=== PATIENT | female | born 1955 | race Caucasian/White ===

== ENCOUNTER 2017-04-17 22:00 | Inpatient (IN) | payer MEDICARE ==
[~2017-04-17] VITALS: Ht 170.2 cm; Wt 97.5 kg
--- NOTE | ~2017-04-17 | HP ---
Unit #: [id number] #: [id number] Patient: JASON LOVELL [id number] [place] [address] [id number] I MR#: [id number] NAME: JASON LOVELL ROOM: P181 Age: 61 Sex: F Admission Date: 04/18/2017 : 1955 Attending Physician: Carol Ann Pulido M.D. Admitting Physician: Carol Ann Pulido M.D. Primary Care Physician: Primary Care Physician No HISTORY AND PHYSICAL HISTORY OF PRESENT ILLNESS Jason is a 61-year-old female admitted on 04/18/2017 to [facility] for alcohol withdrawal. She reports binge alcohol use. PAST MEDICAL HISTORY None. PAST SURGICAL HISTORY 1. Tonsillectomy. 2. Appendectomy. 3. C5 diskectomy with titanium disc placement. ALLERGIES No known drug allergies. SOCIAL HISTORY She smokes 1-1/2 packs of cigarettes daily. Binge alcohol use. Denies any illegal drug use. She is currently a and living alone. FAMILY HISTORY Noncontributory. REVIEW OF SYSTEMS CONSTITUTIONAL: No fever or chills. HEENT: Denies any sore throat, ear pain or runny nose. CARDIOVASCULAR: Denies chest pain, irregular heart rhythm or palpitations. CHEST: Denies shortness of breath or cough. No hemoptysis. GASTROINTESTINAL: Denies nausea, vomiting, diarrhea or chronic constipation. ENDOCRINE: Denies history of increased thirst or urination. No recent significant weight loss or gain. GENITOURINARY: Denies dysuria, frequency, or hematuria. SKIN: Denies any rashes. HEMATOLOGIC: Denies history of increased bleeding or bruising. MUSCULOSKELETAL: Denies any hot, swollen joints. No generalized muscle pain. NEUROLOGIC: Denies problems with vision or speech. No frequent, severe headaches. No numbness, tingling or weakness in any extremities. Denies loss of bladder or bowel control. CURRENT MEDICATIONS 1. Trileptal. 2. Topiramate. Unit #: [id number] #: [id number] Patient: JASON LOVELL 3. Olanzapine. 4. Trazodone. PHYSICAL EXAMINATION GENERAL: Alert, oriented, in no acute distress. VITAL SIGNS: Blood pressure 118/80, heart rate 97, respirations 16, temperature 97.7. HEIGHT: 5 feet 7. WEIGHT: 215 pounds. SKIN: Warm and dry without rash or lesion. HEENT: Normocephalic. TMs not viewed. Oral and nasal passages clear. Conjunctivae clear. PERRLA. EOMs intact. NECK: Supple without lymphadenopathy or thyromegaly. HEART: Regular rate and rhythm without murmur. LUNGS: Clear. ABDOMEN: Soft, nontender, without masses or hepatosplenomegaly. : Not done. EXTREMITIES: No evidence of cyanosis, clubbing or edema. Moves all without focal deficit. NEUROLOGICAL: Grossly within normal limits. Cranial Nerves: II: Visual garcia are intact. III, IV AND : Extraocular movements are intact. Pupils are equal, round and reactive to light. V: Facial sensation is grossly normal. VII: Facial movements and expression are normal. VIII: Auditory acuity grossly intact. IX, X: Uvula is midline. Phonation is normal. XI: Patient shrugs shoulders and turns head normally. XII: Tongue protrudes in the midline. Sensory and Motor Function: Sensory and motor sensation is grossly normal. Motor: moves all extremities well. Coordination: Gait is normal. Deep Tendon Reflexes: Intact. IMPRESSION 1. Psychiatric admission. 2. Obesity. RECOMMENDATIONS PSYCHIATRIC: Per psychiatrist. MEDICAL: No contraindication to participate in facility's activities. MEDICAL PROGNOSIS Good. MEDICAL CONDITION Stable. Dictated by... Bassem Cervantes/lei TD: 04/18/2017 15:47 JOB #: [id number] Unit #: [id number] #: [id number] Patient: JASON LOVELL HISTORY AND PHYSICAL Page 1 of 1 X JAMES ISLAS APRN HISTORY AND PHYSICAL
--- NOTE | ~2017-04-17 | PN ---
Unit #: [id number] #: [id number] Patient: JASON LOVELL [id number] [facility] [address] [place] [address] [id number] I MR#: [id number] NAME: JASON LOVELL. ROOM: P180 Age: 61 Sex: F Admission Date: 04/18/2017 : 1955 Attending Physician: Carol Ann Pulido M.D. Admitting Physician: Carol Ann Pulido M.D. Primary Care Physician: Primary Care Physician Fartun MCLAUGHLIN PROGRESS NOTES DATE 04/22/2017 DISCUSSION Ms. Villalobos is a 17-year-old white female who was seen today and chart was reviewed and case was discussed with the staff. She appears to be doing much better and has been calmer and cooperative with treatment recommendations as she has been taking the medications and tolerating them fairly well with no reported side effects. MENTAL STATUS EXAMINATION Middle-aged white female who was casually dressed with fair personal hygiene, appears to be in no acute distress or discomfort. She was awake and alert on interaction with intact orientation. Her mood was anxious with congruent affect. Her speech was slow and goal-directed. She denies any suicidal or homicidal ideations. Her insight and judgement remains slightly impaired. TREATMENT PLAN 1. We will continue her on her current medications and treatment protocol. We will monitor her response to the medication and make further adjustments as needed. 2. We will continue to follow up. Dictated by... Ramon Kyle/rishi TD: 04/22/2017 23:57 JOB #: [id number] Unit #: [id number] #: [id number] Patient: JASON LOVELL PROGRESS NOTES Page 1 of 1 X Carol Ann Pulido MD PROGRESS NOTE
--- NOTE | ~2017-04-17 | PN ---
Unit #: [id number] #: [id number] Patient: JASON LOVELL [id number] [facility] [address] [place] [address] [id number] I MR#: [id number] NAME: JASON LOVELL. ROOM: P182 Age: 61 Sex: F Admission Date: 04/18/2017 : 1955 Attending Physician: Carol Ann Pulido M.D. Admitting Physician: Carol Ann Pulido M.D. Primary Care Physician: Primary Care Physician Fartun MCLAUGHLIN PROGRESS NOTES DATE OF SERVICE 04/20/2017 DISCUSSION Ms. Lovell is a 61-year-old white female who was seen today. Chart was reviewed and case was discussed with the staff. She has been anxious, withdrawn, and rather seclusive to herself. Meanwhile, she has been cooperative with treatment recommendations and has been taking the medications and tolerating them fairly well and appears to be coming out of the detox without any complications. MENTAL STATUS EXAMINATION Middle-aged white female who is casually dressed with fair personal hygiene, appears to be in no acute distress or discomfort. She was awake and alert on interaction with intact orientation. Her mood is anxious and depressed with congruent affect. Her speech is slow and goal-directed. She denies any suicidal or homicidal ideations. Her insight and judgment remain slightly impaired. TREATMENT PLAN 1. We will continue her on her current medications and treatment protocol. We will monitor her response to the medications and make further adjustments as needed. 2. We will continue to follow up. Dictated by... Ramon Kyle/dannie TD: 04/21/2017 12:27 JOB #: [id number] Unit #: [id number] #: [id number] Patient: JASON LOVELL LISSETTE PROGRESS NOTES Page 1 of 1 X Carol Ann Pulido MD PROGRESS NOTE
--- NOTE | ~2017-04-17 | CO ---
Unit #: [id number] #: [id number] Patient: JASON LOVELL [id number] [place] [address] [id number] I MR#: [id number] NAME: JASON LOVELL ROOM: P181 Age: 61 Sex: F Admission Date: 04/18/2017 : 1955 Attending Physician: Carol Ann Pulido M.D. Primary Care Physician: Primary Care Physician No Consultation Date: 04/18/2017 CONSULTATION REPORT HISTORY OF PRESENT ILLNESS Jason had an abnormal UA that showed 3+ bacteria and 1+ blood. She also had negative nitrites. She reports that she might have a small amount of burning when she pees, but she is not sure how long that has been going on. She has not noticed any blood. She has been waking up twice at night to urinate, which is not common for her. She is also urinating a few times a day, not frequently throughout the day. No back pain. No abdominal pain. No other complaints. PHYSICAL EXAMINATION CARDIAC: Regular rate and rhythm. No murmurs, gallops, or rubs. RESPIRATORY: Clear to auscultation bilaterally. ABDOMEN: Bowel sounds positive in all quadrants. No abdominal tenderness to palpation. No CVA tenderness or flank pain. ASSESSMENT AND PLAN Abnormal urinalysis. We will obtain urine with culture and sensitivity. Once results are available, we will consider antibiotic treatment if needed. Dictated by... Bassem Cervantes/belkis TD: 04/18/2017 23:19 JOB #: [id number] CONSULTATION REPORT Page 1 of 1 X JAMES ISLAS APRN X CONSULTATION REPORT
--- NOTE | ~2017-04-17 | PN ---
Unit #: [id number] #: [id number] Patient: JASON LOVELL [id number] [facility] [address] [place] [address] [id number] I MR#: [id number] NAME: JASON LOVELL. ROOM: P182 Age: 61 Sex: F Admission Date: 04/18/2017 : 1955 Attending Physician: Carol Ann Pulido M.D. Admitting Physician: Carol Ann Pulido M.D. Primary Care Physician: Primary Care Physician Fartun MCLAUGHLIN PROGRESS NOTES DATE April 21, 2017 DISCUSSION Ms. Lovell is a 61-year-old white female, who was seen today and chart was reviewed and the case was discussed with the staff. She has been doing fairly well and appears to be coming out of the detox without any complications, and she has been cooperative with the treatment recommendations and has been taking the medications and tolerating them fairly well with no reported side effects. MENTAL STATUS EXAMINATION Middle-aged white female, who was casually dressed with fair personal hygiene and appears to be in no acute distress or discomfort. She was awake and alert on interaction with intact orientation. Her mood was anxious with a congruent affect. Her speech is slow and goal-directed. She denies any suicidal or homicidal ideations. Her insight and judgment remain slightly impaired. TREATMENT PLAN 1. We will continue her on her current medications and treatment protocol, and will monitor her response to the medications, and make further adjustments as needed. 2. We will continue to followup. Dictated by... Ramon Kyle/jose TD: 04/22/2017 07:25 JOB #: [id number] Unit #: [id number] #: [id number] Patient: JASON LOVELL PROGRESS NOTES Page 1 of 1 X Carol Ann Pulido MD PROGRESS NOTE
--- NOTE | ~2017-04-17 | PN ---
Unit #: [id number] #: [id number] Patient: JASON LOVELL [id number] [facility] [address] [place] [address] [id number] I MR#: [id number] NAME: JASON LOVELL. ROOM: P181 Age: 61 Sex: F Admission Date: 04/18/2017 : 1955 Attending Physician: Carol Ann Pulido M.D. Admitting Physician: Carol Ann Pulido M.D. Primary Care Physician: Primary Care Physician Fartun MCLAUGHLIN PROGRESS NOTES DATE April 19, 2017 DISCUSSION Ms. Lovell is a 61-year-old white female, who was seen today and chart was reviewed and the case was discussed with the staff. The patient has been anxious, withdrawn, and rather seclusive to herself. Meanwhile, she has been cooperative with the treatment recommendations and she has been taking the medications and tolerating them fairly well with no reported side effects. MENTAL STATUS EXAMINATION Middle-aged white female, who was casually dressed with fair personal hygiene and appears to be in no acute distress or discomfort. She was awake and alert with impaired attention and concentration. Her mood was anxious with a congruent affect. The patient denies any suicidal or homicidal ideations. Her insight and judgment remain slightly impaired. TREATMENT PLAN 1. We will continue her on her current medications and treatment protocol, and will monitor her response to the medications, and make further adjustments as needed. 2. We will continue to followup. Dictated by... Ramon Kyle/jose TD: 04/20/2017 11:29 JOB #: [id number] Unit #: [id number] #: [id number] Patient: JASON LOVELL PEAMANNY PROGRESS NOTES Page 1 of 1 X Carol Ann Pulido MD PROGRESS NOTE
--- NOTE | ~2017-04-17 | DS ---
Unit #: [id number] #: [id number] Patient: JASON LOVELL [id number] [facility] [address] [place] [address] [id number] I MR#: [id number] NAME: JASON LOVELL ROOM: P180 Age: 61 Sex: F Admission Date: 04/18/2017 : 1955 Discharge Date: 04/23/2017 Attending Physician: Carol Ann Pulido M.D. Primary Care Physician: Primary Care Physician No DISCHARGE SUMMARY IDENTIFYING DATA Ms. Lovell is a 61-year-old single white female, who is a resident of [place], [place], and was self-referred to the hospital on voluntary basis with a blood alcohol level of 0.110. DISCHARGE DIAGNOSES Psychiatric: Alcohol dependence, moderate and acute withdrawals; alcohol-induced mood disorder. Medical: Hypertension and dyslipidemia. Stressors: Mild psychosocial stressors. HISTORY OF PRESENT ILLNESS Please see initial psychiatric evaluation for details. PAST PSYCHIATRIC HISTORY Please see initial psychiatric evaluation for details. PAST MEDICAL HISTORY Please see initial psychiatric evaluation for details. HOSPITAL COURSE The patient [facility] and was oriented to the hospital environment. Routine p.r.n. medications were initiated, and she was started back on her home medications and was closely monitored. She was taking medications regularly and was tolerating them fairly well and was able to come out of the detox without any complications and was willing to continue treatment on an outpatient basis and as such, it was decided that she will be discharged home and will continue treatment on an outpatient basis. DISCHARGE MEDICATIONS Trileptal 600 mg at bedtime for bipolar, Topamax 50 mg b.i.d. for mood disorder, Zyprexa 10 mg at bedtime for mood disorder, trazodone 150 mg at bedtime for sleep. DISCHARGE CONDITION Stable. PROGNOSIS Fair. Dictated by... Carol Ann Pulido M.D. Unit #: [id number] #: [id number] Patient: JASON LOVELL IAA/modl TD: 04/23/2017 06:44 JOB #: [id number] DISCHARGE SUMMARY Page 1 of 1 X Carol Ann Pulido MD DISCHARGE SUMMARY
--- NOTE | ~2017-04-17 | PA ---
Unit #: [id number] #: [id number] Patient: JASON LOVELL [id number] [facility] [address] [place] [address] [id number] MR#: [id number] NAME: JASON LOVELL. ROOM: P181 Age: 61 Sex: F Admission Date: 04/18/2017 : 1955 Date of Assessment: Attending Physician: Carol Ann Pulido M.D. Admitting Physician: Carol Ann Pulido M.D. PSYCHIATRIC ASSESSMENT DATE OF SERVICE 04/18/2017. IDENTIFYING DATA Ms. Lovell is a 61-year-old single white female, who is a resident of [place], [place], and was self-referred to the hospital on a voluntary basis with blood alcohol level of 0.110. CHIEF COMPLAINT "Alcohol and I need to detox off alcohol." HISTORY OF PRESENT ILLNESS Ms. Lovell is a 61-year-old white female with history of alcohol dependence, who came to the hospital intoxicated and stated that she has been drinking heavily for the last 7 months and she has been drinking half a pint of vodka and 2 glasses of wine and 2 shots of whiskey and does report increasing depression, anxiety, irritability, restlessness, feelings of hopelessness and helplessness, but denies any suicidal ideations, intent, or plan. SUBSTANCE ABUSE HISTORY The patient reports history of experimentation with cannabis and cocaine in the past, but currently alcohol has been her drug of choice as she reports that she has been drinking regularly and heavily on daily basis. PAST PSYCHIATRIC HISTORY The patient has had history of chemical dependency treatment in [place], and reports that she drove here from [place] to get into the treatment program here. PAST MEDICAL HISTORY The patient's medical history is significant for hypertension and dyslipidemia. ALLERGIES No known medication allergies. PERSONAL AND SOCIAL HISTORY A 61-year-old white female, who reports that she is unemployed and essentially homeless and has poor social support system. MENTAL STATUS EXAMINATION Middle-aged white female who was casually dressed with fair personal Unit #: [id number] #: [id number] Patient: JASON LOVELL hygiene, appears to be in no acute distress or discomfort. She was awake and alert on interaction with intact orientation to time, place, and person. Her mood was anxious and depressed with a congruent affect. Her speech was slow and restricted in content. Her thought processes were disorganized with some looseness of associations and flight of ideas. She denies any suicidal or homicidal ideations and also denies any auditory or visual hallucinations. Her insight and judgment remain significantly impaired. DIAGNOSTIC IMPRESSION Psychiatric: Alcohol dependence, moderate and acute withdrawals; alcohol-induced mood disorder. Medical: Hypertension and dyslipidemia. Stressors: Moderate psychosocial stressors. TREATMENT PLAN 1. The patient has presented with history of substance abuse and mood disorder, and has been decompensating and will need inpatient hospitalization for safety and stabilization. We will start her on detox protocol. We will closely monitor for any worsening withdrawal symptoms. 2. Supportive therapy was provided to the patient. 3. Safe, structured, and nourishing environment will be provided. ESTIMATED LENGTH OF STAY 5 to 7 days. ABILITY TO HELP SELF Limited. WILLINGNESS TO HELP SELF The patient appears to be willing to help self. STRENGTHS 1. Communicative. 2. Cooperative. PROBLEMS 1. Chronic dysphoric symptoms. 2. Chronic chemical dependency. 3. Poor social support system. DISCHARGE CRITERIA This will be contingent upon the patient's ability to go through detox without having any significant withdrawal symptoms as well as her ability to stay safe to herself, particularly after discharge from the hospital. Dictated by... Ramon Kyle/belkis TD: 04/18/2017 22:59 JOB #: [id number] Unit #: [id number] #: [id number] Patient: NASJASON Nowak PSYCHIATRIC ASSESSMENT Page 1 of 1 X Carol Ann Pulido MD X PSYCHIATRIC ASSESSMENT
[2017-04-18 11:32] LABS: URINE APPEARANCE CLEAR; URINE BILIRUBIN NEG (NEG); URINE BLOOD 1+ (NEG); URINE COLOR YELLOW; URINE GLUCOSE NEG (NEG); URINE KETONE NEG (NEG); URINE LEUKOCYTE ESTERASE NEG (NEG); URINE NITRATE NEG (NEG); URINE PH 5.5 (5-8); URINE PROTEIN NEG (NEG); URINE SPECIFIC GRAVITY 1.015 (1.003-1.035)
[2017-04-18 12:23] LABS: AMPHETAMINE NEG (NEG); BARBITURATES NEG (NEG); BENZODIAZEPINES POS (NEG); COCAINE NEG (NEG); MARIJUANA NEG (NEG); OPIATES NEG (NEG); TRICYCLIC ANTIDEPRESSANTS NEG (NEG); U METHADONE NEG (NEG)
[2017-04-18 12:25] LABS: MICRO INDICATED? YES
[2017-04-18 12:27] LABS: URINE WBC 0-2 /[HPF] (0-5)
[2017-04-18 12:28] LABS: URINE BACTERIA 3+ (NEG); URINE SQUAMOUS EPITHELIAL CELL MODERATE /[HPF]
[2017-04-19 12:43] LABS: URINE APPEARANCE CLEAR; URINE BILIRUBIN NEG (NEG); URINE BLOOD TRACE (NEG); URINE COLOR DK YELLOW; URINE GLUCOSE NEG (NEG); URINE KETONE NEG (NEG); URINE LEUKOCYTE ESTERASE NEG (NEG); URINE NITRATE NEG (NEG); URINE PH 7.5 (5-8); URINE PROTEIN NEG (NEG); URINE SPECIFIC GRAVITY 1.012 (1.003-1.035)
[2017-04-19 12:45] LABS: URINE BACTERIA AUWI NEG (NEGATIVE); URINE SQUAMOUS EPITHELIAL CELL FEW /[HPF]
[2017-04-19 12:50] LABS: CULTURE INDICATED? NO
[2017-04-19 14:19] LABS: BASOPHIL% 0.3 % (0-2.5); EOSINOPHIL% 0.5 % (0.0-7.0); HEMOGLOBIN 11.9 gm/dL (12.0-16.0); MEAN CELL VOLUME 91.9 FL (83-96); MEAN CORPUSCULAR HEMOGLOBIN 30.4 PG (28-34); MEAN CORPUSCULAR HGB CONC 33.1 g/dL (30-36); MEAN PLATELET VOLUME 8.9 FL (6.5-11.5); MONOCYTE# 0.9 X10e3 (0-1.0); MONOCYTE% 15.8 % (3.0-12.0); NEUTROPHIL# 3.9 X10e3 (1.5-7.1); NEUTROPHIL% 66.4 % (40-75); PLATELET COUNT 147 X10e3 (140-420); RED BLOOD COUNT 3.92 X10e (3.90-5.30); RED CELL DISTRIBUTION WIDTH 19.5 % (11.0-15.5); WHITE BLOOD COUNT 5.8 X10e3 (4.0-10.5)
[2017-04-19 14:25] LABS: DIFF IND NO
[2017-04-19 15:24] LABS: ALBUMIN SERUM 3.1 g/dL (3.5-5.0); BILIRUBIN,TOTAL 0.6 mg/dL (0.2-2.0); BUN/CREATININE RATIO 11.25; CALCIUM SERUM 8.8 mg/dL (8.4-10.2); CREATININE SERUM 0.8 mg/dL (0.6-1.4); GLOM FILT RATE Estimated 80.2 mL/min (>60); POTASSIUM 3.9 mmol/L (3.5-5.1); PROTEIN TOTAL SERUM 5.3 g/dL (6.0-8.3)
== END 2017-04-23 10:58 | DRG 897 ==
LOC: P1E 04-18 01:00
PROVIDERS: Psychiatry & Neurology Psychiatry
PROC: HZ2ZZZZ Detoxification Services for Substance Abuse Treatment (ICD-10-PCS; principal; 2017-04-18)
DX: F10.239 Alcohol dependence with withdrawal, unspecified (principal); F10.24 Alcohol dependence with alcohol-induced mood disorder; I10 Essential (primary) hypertension; E78.5 Hyperlipidemia, unspecified
CPT/HCPCS: 80053; 80307; 81003; 85025